=== PATIENT | male | born 1990 | race Caucasian/White ===

== ENCOUNTER 2019-04-18 18:13 | Emergency (ER) | payer SELFPAY ==
[2019-04-18 18:20] VITALS: BP 130/65; PULSE 58; TEMP 98.2; BMI 30.9
--- NOTE | 2019-04-18 18:22 | PDOC ---
Rapid Medical Evaluation Chief Complaint: Pain, Acute Time Seen by Provider: 04/18/19 18:20 Medical Evaluation: Allergies Allergy/AdvReac Type Severity Reaction Status Date / Time No Known Allergies Allergy Verified 04/18/19 18:20 Vital Signs Temp Pulse Resp BP Pulse Ox 98.2 F 58 L 18 130/65 98 04/18/19 18:19 04/18/19 18:19 04/18/19 18:19 04/18/19 18:19 04/18/19 18:19 04/18/19 18:21 Pt c/o: left test swelling x 1 month with mild pain with movement, no other complaints, no heavy lifting or penile pain,d/c pt on brief exam: no small amt a fluid over left testicle, no epidid tenderness Pt ordered for: u/s urine pt to proceed to the ED Discharge Disposition - Diagnosis Pain in testicle - Discharge Dispostion Condition at time of disposition: Stable - Referrals - Patient Instructions - Post Discharge Activity
[2019-04-18] MEDS ORDERED: ACETAMINOPHEN 325 MG TABLET (FP) PO ONE (19:13)
--- NOTE | 2019-04-18 19:13 | PDOC ---
History of Present Illness - General Chief Complaint: Pain, Acute Stated Complaint: TESTICLE PAIN Time Seen by Provider: 04/18/19 18:20 History Source: Patient Exam Limitations: No Limitations - History of Present Illness Travel History: No Initial Comments: 04/18/19 19:14 28y M no significant past medical history presenting with a complaint of testicular pain. Patient states that his pain initially started while he was playing soccer and somebody kicked a ball into his testicle approximate several weeks ago, the pain has been mild and intermittent however has gradually been getting worse and seemed to spread into the other testicle. The patient states the pain is intermittent lasting for maybe 1.5 hours before resolving. States that sometimes it is worse when he is walking around. He denies any associated discharge, fever, chills, dysuria. Past History - Past Medical History Allergies/Adverse Reactions: Allergies Allergy/AdvReac Type Severity Reaction Status Date / Time No Known Allergies Allergy Verified 04/18/19 18:20 - Psycho Social/Smoking Cessation Hx Smoking History: Never smoked Have you smoked in the past 12 months: No Information on smoking cessation initiated: No Hx Alcohol Use: No Drug/Substance Use Hx: No Review of Systems - Review of Systems Able to Perform ROS?: Yes Comments:: 04/18/19 19:20 Constitutional - no reported Fever, Chills, HEENT: no reported vision changes, sore throat Respiratory: no reported cough, sob, hemoptysis Cardiac: no reported chest pain, palpitations, light headedness, leg swelling Abd/GI: no reported abd pain, nausea, vomiting, blood per rectum, melena, diarrhea : +testicular pain no reported dysuria, frequency, discharge Musculskelatal - no reported back pain, joint swelling skin - no reported bruising, erythema, rash neurological: no reported headache, numbness, focal weakness, tingling, ataxia, hematologic: no reported easy bruising, easy bleeding *Physical Exam - Vital Signs Last Vital Signs Temp Pulse Resp BP Pulse Ox 98.2 F 58 L 18 130/65 98 04/18/19 18:19 04/18/19 18:19 04/18/19 18:19 04/18/19 18:19 04/18/19 18:19 - Physical Exam 04/18/19 19:21 GENERAL: The patient is awake, alert, and fully oriented, Nontoxic - in no acute distress. HEAD: Normocephalic, atraumatic. LUNGS: Breath sounds equal, clear to auscultation bilaterally. No wheezes, no rhonchi, no rales. HEART: Regular rate and rhythm, normal S1 and S2 without murmur, rub or gallop. ABDOMEN: Soft, nontender, No guarding, no rebound. No CVA tenderness : No focal testicular tenderness, no epididymal tenderness, no swelling, no rashes appreciated, EXTREMITIES: Normal range of motion, no edema. NEUROLOGICAL: No facial assymetry, Normal speech, PSYCH: Normal mood, normal affect. SKIN: Warm, Dry, normal turgor, Medical Decision Making - Medical Decision Making 04/18/19 19:22 28-year-old status post remote testicular trauma presenting with remittent testicular pain, no signs of infectious sx. The patient's exam is unremarkable. We will obtain a urinalysis as well as a testicular ultrasound We will give Tylenol for pain 04/18/19 20:20 ua negative USS negative will dc to fu with return precutions were dicussed Discharge - Discharge Information Problems reviewed: Yes Clinical Impression/Diagnosis: Pain in testicle Condition: Improved Disposition: HOME - Admission No - Follow up/Referral Referrals: Dakota Wheeler MD [Staff Physician] - - Patient Discharge Instructions Patient Printed Discharge Instructions: DI for Testicular Pain Additional Instructions: Return to the emergency department immediately with ANY new, persistent or worsening symptoms. Your ultrasound did not reveal any cause of you pain however if your symptoms return return immediately for further evaluation You MUST call and follow up with your urologist within 4-5 days for further evaluation of your symptoms. Results were discussed with you. Please make sure your doctor reviews the results of your emergency evaluation. Your Emergency Department visit is not complete without a follow up with your doctor. Print Language: UKRAINIAN - Post Discharge Activity
[2019-04-18 20:15] LABS: PH,URINE 5.5 (5.0-8.0); URINE APPEARANCE CLEAR; URINE BILIRUBIN NEGATIVE (NEGATIVE); URINE COLOR YELLOW; URINE GLUCOSE (UA) NEGATIVE (NEGATIVE); URINE KETONE TRACE (NEGATIVE); URINE LEUK ESTERASE NEGATIVE (NEGATIVE); URINE NITRITE NEGATIVE (NEGATIVE); URINE PROTEIN NEGATIVE (NEGATIVE)
== END 2019-04-18 21:25 | disposition home or self-care (01) ==
LOC: JER 18:13
DX: N50.819 Testicular pain, unspecified (principal)
CPT/HCPCS: 76870-TC; 81003; 87086; 99281-25